=== PATIENT | female | born 1995 | race Two or more races ===

== ENCOUNTER 2022-07-06 17:39 | Emergency (ER) | payer MEDICAID ==
[~2022-07-06] VITALS: Ht 149.9 cm; Wt 58.7 kg
[2022-07-06] MEDS ORDERED: HYDROcodone-ACET 5/325MG TAB PO ONE (18:15)
[2022-07-06] MEDS ORDERED: ONDANSETRON ODT 4 MG TAB PO ONE (18:15)
[2022-07-06] MEDS ORDERED: IBUP100S11 PO ×2 (19:23→19:37)
[2022-07-06] MEDS ORDERED: HYDROcodone-ACET 10/325MG TAB PO ONE (19:45)
[2022-07-06 19:47] LABS: Basophils # (auto) 0 10 ^3/uL (0-0.2); Basophils % (auto) 0.3 % (0.0-2.0); Eosinophils # (auto) 0.1 10 ^3/uL (0-0.8); Eosinophils % (auto) 0.7 % (0.0-7.0); Hematocrit 40.5 % (36.0-46.0); Hemoglobin 13.2 g/dL (12.2-16.2); Lymphocytes % (auto) 15.1 % (10.0-50.0); Mean Corpuscular Hemoglobin 27.6 pg (28.0-32.0); Mean Corpuscular Hgb Conc. 32.5 g/dL (32.0-36.0); Mean Corpuscular Volume 84.8 fL (80.0-100.0); Monocytes # (auto) 0.6 10 ^3/uL (0-1.3); Monocytes % (auto) 4.8 % (0.0-12.0); Neutrophils # (auto) 10.6 10 ^3/uL (1.6-8.6); Neutrophils % (auto) 79.1 % (37.0-80.0); Nucleated Red Blood Cells % 0.1 %; Red Blood Cells 4.77 10^6/uL (4.0-5.20); Red Cell Distribution Width 13.2 % (11.8-14.3); White Blood Cell 13.4 10^3/uL (4.4-10.8)
[2022-07-06 20:29] LABS: Alanine Aminotransferase 71 U/L (13-56); Alkaline Phosphatase 92 U/L (45-117); Anion Gap 6 (5-15); Aspartate Aminotransferase 118 U/L (15-37); BUN/Creatinine Ratio 21.2; Blood Urea Nitrogen 11 mg/dL (7-18); Carbon Dioxide 29 mmol/L (21-32); Chloride 106 mmol/L (98-107); GFR African American 179 mL/min; GFR Non-African American 148 mL/min; Glucose 107 mg/dL (74-106); Potassium 4.3 mmol/L (3.5-5.1); Sodium 141 mmol/L (136-145)
[2022-07-06 20:30] LABS: Bilirubin, Total 0.8 mg/dL (0.2-1.0); Total Protein 7.3 g/dL (6.4-8.2)
[2022-07-06 20:55] VITALS: BP 110/70
== END 2022-07-06 21:03 | disposition home or self-care (01) ==
LOC: ER 17:39
DX: K80.20 Calculus of gallbladder without cholecystitis without obstruction (principal); Z79.1 Long term (current) use of non-steroidal anti-inflammatories (NSAID)
CPT/HCPCS: 36415; 76705; 80053; 85025; 93005; 99285; Q0162

== ENCOUNTER 2023-03-04 19:05 | Emergency (ER) | payer MEDICAID ==
[~2023-03-04] VITALS: Ht 149.9 cm; Wt 64.0 kg
[2023-03-04 19:05] VITALS: BP 146/72
[~2023-03-04 19:05] MED LIST: IBUP100S11 PO
[2023-03-04 20:18] LABS: Basophils # (auto) 0.1 10 ^3/uL (0-0.2); Basophils % (auto) 0.4 % (0.0-2.0); Eosinophils # (auto) 0.3 10 ^3/uL (0-0.8); Eosinophils % (auto) 2.3 % (0.0-7.0); Hematocrit 39.1 % (36.0-46.0); Hemoglobin 13.6 g/dL (12.2-16.2); Lymphocytes # (auto) 3.1 10 ^3/uL (0.4-5.4); Lymphocytes % (auto) 26.3 % (10.0-50.0); Mean Corpuscular Hemoglobin 29.6 pg (28.0-32.0); Mean Corpuscular Hgb Conc. 34.8 g/dL (32.0-36.0); Mean Corpuscular Volume 84.9 fL (80.0-100.0); Monocytes # (auto) 0.8 10 ^3/uL (0-1.3); Monocytes % (auto) 6.8 % (0.0-12.0); Neutrophils # (auto) 7.6 10 ^3/uL (1.6-8.6); Neutrophils % (auto) 64.2 % (37.0-80.0); Nucleated Red Blood Cells % 0.1 %; Red Cell Distribution Width 13.7 % (11.8-14.3); White Blood Cell 11.9 10^3/uL (4.4-10.8)
[2023-03-04 20:42] LABS: Calcium 8.8 mg/dL (8.5-10.1)
[2023-03-04 20:45] LABS: Urine Bacteria NONE SEEN /hpf (None Seen); Urine Blood Negative /uL (Negative); Urine Specific Gravity 1.014 (1.001-1.035); Urine WBC 3 /hpf (0 - 5)
[2023-03-04 20:46] LABS: Bilirubin, Total 0.7 mg/dL (0.2-1.0); Total Protein 7.7 g/dL (6.4-8.2)
== END 2023-03-05 03:36 | disposition home or self-care (01) ==
LOC: ER 19:05
DX: O20.0 Threatened abortion (principal); Z3A.08 8 weeks gestation of pregnancy
CPT/HCPCS: 36415; 76801; 76817; 80053; 81001; 84702; 85025

== ENCOUNTER 2024-04-26 15:12 | Emergency (ER) | payer MEDICAID ==
[~2024-04-26] VITALS: Ht 149.9 cm; Wt 63.4 kg
[2024-04-26 15:35] LABS: Urine Bacteria None Seen /hpf (None Seen)
[2024-04-26 15:43] LABS: Basophils # (auto) 0 10 ^3/uL (0-0.2); Basophils % (auto) 0.5 % (0.0-2.0); Eosinophils # (auto) 0.2 10 ^3/uL (0-0.8); Eosinophils % (auto) 2.3 % (0.0-7.0); Hematocrit 38.1 % (36.0-46.0); Hemoglobin 13.3 g/dL (12.2-16.2); Lymphocytes # (auto) 3.5 10 ^3/uL (0.4-5.4); Lymphocytes % (auto) 39.5 % (10.0-50.0); Mean Corpuscular Hemoglobin 29.9 pg (28.0-32.0); Mean Corpuscular Volume 85.4 fL (80.0-100.0); Monocytes # (auto) 0.5 10 ^3/uL (0-1.3); Monocytes % (auto) 6.2 % (0.0-12.0); Neutrophils # (auto) 4.5 10 ^3/uL (1.6-8.6); Neutrophils % (auto) 51.5 % (37.0-80.0); Red Blood Cells 4.47 10^6/uL (4.0-5.20); White Blood Cell 8.8 10^3/uL (4.4-10.8)
[2024-04-26] MEDS: KETOROLAC TROMETH 60MG/2ML VIAL IM ONE (15:55)
[2024-04-26 16:08] LABS: Alanine Aminotransferase 15 U/L (7-40); Albumin 4.8 g/dL (3.2-4.8); Alkaline Phosphatase 93 U/L (46-116); Anion Gap 3 (5-15); Aspartate Aminotransferase 12 U/L (13-40); BUN/Creatinine Ratio 18.8 (10.0-20.0); Blood Urea Nitrogen 12 mg/dL (9-23); Calcium 10.1 mg/dL (8.7-10.4); Carbon Dioxide 28 mmol/L (20-30); Chloride 107 mmol/L (98-107); Glucose 90 mg/dL (74-106); Potassium 4.7 mmol/L (3.5-5.1); Sodium 138 mmol/L (136-145)
[2024-04-26 16:09] LABS: Bilirubin, Total 0.9 mg/dL (0.2-1.0); Total Protein 7.4 g/dL (5.7-8.2)
[2024-04-26 16:24] LABS: Lipase 37 U/L (12-53)
[2024-04-26 16:27] LABS: Urine Blood 1+ /uL (Negative); Urine Clarity Clear (Clear); Urine Color Colorless (Yellow); Urine Protein, UAD Negative (Negative); Urine Specific Gravity 1.009 (1.001-1.035); Urine Urobilinogen Normal (Negative); Urine WBC 4 /hpf (0 - 5)
[2024-04-26] MEDS ORDERED: HYDR-4902 PO (17:30)
[2024-04-26] MEDS ORDERED: ZOFR4T PO (17:30)
[2024-04-26] MEDS: HYDROcodone-ACET 5/325MG TAB PO ONE (17:42)
[2024-04-26] MEDS ORDERED: CIPR-173 PO (18:19)
[2024-04-26 18:52] VITALS: BP 129/87; PULSE 72; RESP 18; TEMP 98.2; O2SAT 98
== END 2024-04-26 18:54 | disposition home or self-care (01) ==
LOC: ER 15:12
DX: K80.20 Calculus of gallbladder without cholecystitis without obstruction (principal); N39.0 Urinary tract infection, site not specified; R10.9 Unspecified abdominal pain; Z79.899 Other long term (current) drug therapy
CPT/HCPCS: 36415; 74176; 80053; 81001; 81025; 83690; 85025; 99284; J1885

== ENCOUNTER 2024-08-30 09:19 | Emergency (ER) | payer MEDICAID ==
[~2024-08-30] VITALS: Ht 149.9 cm; Wt 62.0 kg
[~2024-08-30 09:19] MED LIST changes: +CIPR-173 PO; +HYDR-4902 PO; +ZOFR4T PO
[2024-08-30 10:15] VITALS: BP 119/81; PULSE 85; RESP 16; TEMP 98.4; O2SAT 98
[2024-08-30] MEDS ORDERED: CEPH500C PO (11:01)
[2024-08-30] MEDS ORDERED: IBUP-1455 PO (11:01)
--- NOTE | 2024-08-30 11:02 | ED.PDOC ---
History of Present Illness HPI Comments 29-year-old female complaining of right breast pain intermittently for the last two months. States over the last week pain has been getting worse. States she feels tenderness with lying flat. Patient does report a history of breast reduction done in October of 2023. States she had no significant pain or c omplications after surgery until the last two months ago. Nothing makes it better, touching the area makes it worse. She was noticed some intermittent fevers over the last 3-4 days. Chief Complaint: Breast pain Time Seen by MD: 10:13 Primary Care Provider: unknown Reviewed Notes: Nurses Notes Allergies: Coded Allergies: NO KNOWN ALLERGIES (Unverified , 06/19/11) Home Meds Active Scripts Ciprofloxacin Hcl (Cipro) 500 Mg Tab, 1 TAB PO BID, #14 TAB Prov:YOSI PANIAGUA MD 04/26/24 Ondansetron Odt 4MG Tab (ZOFRAN PO) 4 Mg Tb, 4 MG PO Q8HP PRN for 5 Days, #15 TAB ODT TAB-DISSOLVE IN MOUTH, THEN SWALLOW Prov:YOSI PANIAGUA MD 04/26/24 Hydrocodone-Acetaminophen (Hydrocodone Bitartrate/AC 5-325 mg) 1 Tab Tab, 1 TAB PO Q8HP PRN for 5 Days, #15 TAB Prov:YOSI PANIAGUA MD 04/26/24 Ibuprofen (Motrin) 100 Mg/5 Ml Ud, 800 MG PO 3XD for 7 Days, #21 UNIT Prov:RUPAL LANDA MD 07/06/22 Information Source: Patient Mode of Arrival: Ambulatory Past Medical History PAST MEDICAL HISTORY: Gallstones Surgical History: Denies all surgeries WATER POLLUTION SPECIALIST History: Denies all WATER POLLUTION SPECIALIST Hx Family History Family History: Reviewed,noncontributory to illness Social History Smoker: Non-Smoker Alcohol: Occasionally Drugs: Denies Drug Use Lives In: Home Constitutional: reports: fever; denies: chills, diaphoresis, fatigue, malaise, sweats, weakness, others EENTM: denies: blurred vision, double vision, ear bleeding, ear discharge, ear drainage, ear pain, ear ringing, eye pain, eye redness, hearing loss, mouth pain, mouth swelling, nasal discharge, nose bleeding, nose congestion, nose pain, photophobia, tearing, throat pain, throat swelling, voice changes, others Respiratory: denies: cough, hemoptysis, orthopnea, SOB at rest, shortness of breath, SOB with excertion, stridor, wheezing, others Cardiovascular: denies: chest pain, dizzy spells, diaphoresis, Dyspnea on exertion, edema, irregular heart beat, left arm pain, lightheadedness, palpitations, PND, syncope, others Gastrointestinal: denies: abdomen distended, abdominal pain, blood streaked bowels, constipated, diarrhea, dysphagia, difficulty swallowing, hematemesis, melena, nausea, poor appetite, poor fluid intake, rectal bleeding, rectal pain, vomiting, others Genitourinary: denies: abnormal vagina bleeding, burning, dyspareunia, dysuria, flank pain, frequency, hematuria, incontinence, pain, , vagina discharge, urgency, others Neurological: denies: dizziness, fainting, headache, left sided numbness, left sided weakness, numbness, paresthesia, pre-existing deficit, right sided numbness, right sided weakness, seizure, speech problems, tingling, tremors, weakness, others Musculoskeletal: denies: back pain, gout, joint pain, joint swelling, muscle pain, muscle stiffness, neck pain, others Integumetry: denies: bruises, change in color, change in hair/nails, dryness, laceration, lesions, lumps, rash, wounds, others Allergic/Immunocompromised: denies: Difficulty Healing, Frequent Infections, Hives, Itching, others Hematologic/Lymphatic: denies: anemia, blood clots, easy bleeding, easy bruising, swollen glands, others Endocrine: denies: excessive hunger, excessive sweating, excessive thirst, excessive urination, flushing, intolerance to cold, intolerance to heat, unexplained weight gain, unexplained weight loss, others Psychiatric: denies: anxiety, bipolar disorder, depression, hopeless, panic disorder, schizophrenia, sleepless, suicidal, others Physical Exam General Appearance: No Apparent Distress, Normal HEENT: Normal ENT Inspection, Pharynx Normal, TMs Normal Neck: Full Range of Motion, Non-Tender, Normal, Normal Inspection Respiratory: Chest Non-Tender, Lungs Clear, No Accessory Muscle Use, No Respiratory Distress, Normal Breath Sounds Cardiovascular: No Edema, No JVD, No Murmur, No Gallop, Normal Peripheral Pulses, Regular Rate/Rhythm Breast Exam: (R) Tenderness (Tender to palpation over the lateral side of the right breast) Gastrointestinal: No Organomegaly, Non Tender, No Pulsatile Mass, Normal Bowel Sounds, Soft Genitalia: Deferred Pelvic: Deferred Rectal: Deferred Extremities: No calf tenderness, Normal capillary refill, Normal inspection, Normal range of motion, Non-tender, No pedal edema Musculoskeletal : Apperance: Normal Neurologic: Alert, epic trainer II-XII nml as Tested, No Motor Deficits, Normal Affect, Normal Mood, No Sensory Deficits Cerebellar Function: Normal Reflexes: Normal Skin: Dry, Normal Color, Warm Lymphatic: No Adenopathy Was a procedure done? Was a procedure done?: No Differential Dx Considerations may include: Mastitis, malignancy, cystic changes. X-Ray, Labs, Meds, VS Vital Signs Date Time Temp Pulse Resp B/P (MAP) Pulse Ox O2 Delivery O2 Flow Rate FiO2 08/30/24 10:15 85 16 98 Room Air 08/30/24 10:15 98.4 85 16 119/81 (94) 98 98.4 08/30/24 09:30 98.4 85 16 119/81 (94) 98 X-Ray, Labs, Meds, VS Comment Imaging: X-rays and CT scans were reviewed and interpreted by this provider, imaging shows no fractures and no pathological disease. Pending radiology review. Laboratory: Labs reviewed and interpreted by this provider. No significant abnormalities noted. Patient has prior medical visits reviewed. Med reconciliation performed Vital signs reviewed Advised to follow up with PCP for possible mammogram. Time of 1ST Reevaluation: 11:01 Reevaluation 1ST: Improved Patient Education/Counseling: Diagnosis, Treatment, Need For Follow Up (Patient advised to follow-up in the emergency room in the next 24 to 48 hours if symptoms do not improve. Advised follow-up with PCP in the next 3 to 5 days. Patient verbalized understanding. ) Family Education/Counseling: Diagnosis Departure 1 Departure Time of Disposition: 10:59 Impression: Primary Impression: Mastitis Disposition: 01 HOME / SELF CARE / HOMELESS Condition: Fair e-Prescriptions Ibuprofen Micronized (Ibuprofen) 800 Mg Tab 800 MG PO TID PRN, #30 TAB Prov: ALLEGRA HOWELL 08/30/24 Cephalexin Monohydrate (Cephalexin) 500 Mg Cap 1 CAP PO TID for 7 Days, #28 CAP Prov: ALLEGRA HOWELL 08/30/24 Discharged With: Self Critical Care Note Critical Care Time?: No Stability Stability form required: No Heart Score Heart Score: Heart Score Response (Comments) Value History N/A 0 EKG N/A 0 Age N/A 0 Risk Factors N/A 0 Troponin N/A 0 Total 0 ALLEGRA HOWELL Aug 30, 2024 11:02
== END 2024-08-30 11:02 | disposition home or self-care (01) ==
LOC: ER 09:19
DX: N61.0 Mastitis without abscess (principal); Z79.899 Other long term (current) drug therapy

== ENCOUNTER 2025-04-30 07:47 | Emergency (ER) | payer MEDICAID ==
[~2025-04-30] VITALS: Ht 149.9 cm; Wt 64.0 kg
[~2025-04-30 07:47] MED LIST changes: +CEPH500C PO; +IBUP-1455 PO
[2025-04-30 08:13] LABS: Urine Protein, UAD Negative (Negative)
--- NOTE | 2025-04-30 08:22 | ED.PDOC ---
General HPI Comments A 30 YEAR OLD FEMALE, WITH A PMHX OF OVARIAN FIBROIDS, PRESENTS TO THE ED WITH A C/C OF DYSURIA WITH ASSOCIATED LEFT PELVIC PAIN, NAUSEA, VOMITING, AND CONSTIPATION OF YESTERDAY. PATIENT STATES PELVIC PAIN RADIATES FROM THE LEFT PELVIS TO SUPRAPUBIC AREA. PATIENT STATES HER LAST MENSTRUAL PERIOD OF WAS 1 MONTH AGO AND SHE ONLY BLED FOR 1 DAY. PATIENT DENIES THIS HAPPENING BEFORE, AND DENIES FURTHER ASSOCIATED SYMPTOMS OF FEVER, CHILLS, CHEST PAIN, DIZZINESS, OR GENERAL WEAKNESS. PATIENT HAS NO FURTHER COMPLAINTS. PATIENT IS ALERT, ORIENTED X 4, AND HAS STEADY GAIT. Chief Complaint: Pelvic Pain Time Seen by MD: 08:11 Primary Care Provider: unknown Reviewed notes: Nurses Notes, Medications, Allergies Allergies: Coded Allergies: NO KNOWN ALLERGIES (Unverified , 06/19/11) Home Meds Active Scripts Ibuprofen Micronized (Ibuprofen) 800 Mg Tab, 800 MG PO TID PRN, #30 TAB Prov:ALLEGRA HOWELL RIGHT OF WAY CUTTER 08/30/24 Cephalexin Monohydrate (Cephalexin) 500 Mg Cap, 1 CAP PO TID for 7 Days, #28 CAP Prov:ALLEGRA HOWELLP 08/30/24 Ciprofloxacin Hcl (Cipro) 500 Mg Tab, 1 TAB PO BID, #14 TAB Prov:YOSI PANIAGUA MD 04/26/24 Ondansetron Odt 4MG Tab (ZOFRAN PO) 4 Mg Tb, 4 MG PO Q8HP PRN for 5 Days, #15 TAB ODT TAB-DISSOLVE IN MOUTH, THEN SWALLOW Prov:YOSI PANIAGUA MD 04/26/24 Hydrocodone-Acetaminophen (Hydrocodone Bitartrate/AC 5-325 mg) 1 Tab Tab, 1 TAB PO Q8HP PRN for 5 Days, #15 TAB Prov:YOSI PANIAGUA MD 04/26/24 Ibuprofen (Motrin) 100 Mg/5 Ml Ud, 800 MG PO 3XD for 7 Days, #21 UNIT Prov:RUPAL LANDA MD 07/06/22 Information Source: Patient Mode of Arrival: Ambulatory Severity: Moderate Timing: Days Duration: Since onset, Days Onset: Spontaneous Symptoms: Dysuria History of: None Location: Suprapubic associated signs and symptoms: Abdominal Pain, Nausea, Vomiting, Dysuria, Other (BLOOD STREAKED STOOL, ABDOMINAL DISTENTION) Past Medical History PAST MEDICAL HISTORY: Gallstones Surgical History: Denies all surgeries 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: Denies all TECHNICIAN HELPER INSTRUMENT Hx Family History Family History: Reviewed,noncontributory to illness Social History Smoker: Non-Smoker Alcohol: Occasionally Drugs: Denies Drug Use Lives In: Home Constitutional: denies: chills, diaphoresis, fatigue, fever, malaise, sweats, weakness, others EENTM: denies: blurred vision, double vision, ear bleeding, ear discharge, ear drainage, ear pain, ear ringing, eye pain, eye redness, hearing loss, mouth pain, mouth swelling, nasal discharge, nose bleeding, nose congestion, nose pain, photophobia, tearing, throat pain, throat swelling, voice changes, others Respiratory: denies: cough, hemoptysis, orthopnea, SOB at rest, shortness of breath, SOB with excertion, stridor, wheezing, others Cardiovascular: denies: chest pain, dizzy spells, diaphoresis, Dyspnea on exertion, edema, irregular heart beat, left arm pain, lightheadedness, palpitations, PND, syncope, others Gastrointestinal: reports: constipated, nausea, vomiting, others (BLOOD STREAKED STOOL ); denies: abdomen distended, abdominal pain, blood streaked bowels, diarrhea, dysphagia, difficulty swallowing, hematemesis, melena, poor appetite, poor fluid intake, rectal bleeding, rectal pain Genitourinary: reports: dysuria, pain (LEFT PELVIC TO SUPRAPUBIC ); denies: abnormal vagina bleeding, burning, dyspareunia, flank pain, frequency, hematuria, incontinence, , vagina discharge, urgency, others Neurological: denies: dizziness, fainting, headache, left sided numbness, left sided weakness, numbness, paresthesia, pre-existing deficit, right sided numbness, right sided weakness, seizure, speech problems, tingling, tremors, wea kness, others Musculoskeletal: denies: back pain, gout, joint pain, joint swelling, muscle pain, muscle stiffness, neck pain, others Integumetry: denies: bruises, change in color, change in hair/nails, dryness, l aceration, lesions, lumps, rash, wounds, others Allergic/Immunocompromised: denies: Difficulty Healing, Frequent Infections, Hives, Itching, others Hematologic/Lymphatic: denies: anemia, blood clots, easy bleeding, easy bruising, swollen glands, others Endocrine: denies: excessive hunger, excessive sweating, excessive thirst, excessive urination, flushing, intolerance to cold, intolerance to heat, unexplained weight gain, unexplained weight loss, others Psychiatric: denies: anxiety, bipolar disorder, depression, hopeless, panic disorder, schizophrenia, sleepless, suicidal, others All Other Systems: Reviewed and Negative Physical Exam General Appearance: Mild Distress, Normal, Other (ANXIOUS ) HEENT: Normal ENT Inspection, PERRL/EOMI, Pharynx Normal, TMs Normal Neck: Full Range of Motion, Non-Tender, Normal, Normal Inspection Respiratory: Chest Non-Tender, Lungs Clear, No Accessory Muscle Use, No Respiratory Distress, Normal Breath Sounds Cardiovascular: No Edema, No JVD, No Murmur, No Gallop, Normal Peripheral Pulses, Regular Rate/Rhythm Breast Exam: Deferred Gastrointestinal: No Organomegaly, Non Tender, No Pulsatile Mass, Normal Bowel Sounds, Soft Genitalia: Deferred Pelvic: Normal External Exam, Tender Adnexa (TENDERNESS ON LEFT PELVIC, NO GUARDING AND REBOUND TENDERNESS. ) Rectal: Deferred Extremities: No calf tenderness, Normal capillary refill, Normal inspection, Normal range of motion, Non-tender, No pedal edema Musculoskeletal : Apperance: Normal Neurologic: Alert, title i teacher II-XII nml as Tested, No Motor Deficits, Normal Affect, Normal Mood, No Sensory Deficits Cerebellar Function: Normal Reflexes: Normal Skin: Dry, Normal Color, Warm Peripheral Pulses: 2+ carotid (R), 2+ carotid (L) Lymphatic: No Adenopathy Was a procedure done? Was a procedure done?: No Differential Diagnosis Kidney stone (Female): Ovarian torsion, Strain, Other (UTERINE FIBROIDS, OVARIAN CYST) Urinary Problem (Female): Urolithiasis, UTI, Vaginitis Other Differential Diagnosis X-Ray, Labs, Meds, VS Vital Signs Date Time Temp Pulse Resp B/P (MAP) Pulse Ox O2 Delivery O2 Flow Rate FiO2 04/30/25 07:48 97.8 87 18 124/82 96 97.8 Lab Test 04/30/25 09:25 04/30/25 08:05 Range/Units White Blood Count 11.1 H 4.4-10.8 10^3/uL Red Blood Count 4.82 4.0-5.20 10^6/uL Hemoglobin 14.1 12.2-16.2 g/dL Hematocrit 41.2 36.0-46.0 % Mean Corpuscular Volume 85.5 80.0-100.0 fL Mean Corpuscular Hemoglobin 29.3 28.0-32.0 pg Mean Corpuscular Hemoglobin Concent 34.3 32.0-36.0 g/dL Red Cell Distribution Width 13.4 11.8-14.3 % Platelet Count 363 140-450 10^3/uL Mean Platelet Volume 6.3 L 6.9-10.8 fL Neutrophils (%) (Auto) 68.5 37.0-80.0 % Lymphocytes (%) (Auto) 22.1 10.0-50.0 % Monocytes (%) (Auto) 7.5 0.0-12.0 % Eosinophils (%) (Auto) 1.3 0.0-7.0 % Basophils (%) (Auto) 0.6 0.0-2.0 % Neutrophils # (Auto) 7.6 1.6-8.6 10 ^3/uL Lymphocytes # (Auto) 2.4 0.4-5.4 10 ^3/uL Monocytes # (Auto) 0.8 0-1.3 10 ^3/uL Eosinophils # (Auto) 0.1 0-0.8 10 ^3/uL Basophils # (Auto) 0.1 0-0.2 10 ^3/uL Nucleated Red Blood Cells 0.1 % Sodium Level 139 136-145 mmol/L Potassium Level 4.5 3.5-5.1 mmol/L Chloride Level 107 98-107 mmol/L Carbon Dioxide Level 25 20-31 mmol/L Anion Gap 7 5-15 Blood Urea Nitrogen 7 L 9-23 mg/dL Creatinine 0.69 0.550-1.02 mg/dL Glomerular Filtration Rate Calc 118 >90 mL/min BUN/Creatinine Ratio 10.1 10.0-20.0 Serum Glucose 100 74-106 mg/dL Calcium Level 9.9 8.7-10.4 mg/dL Urine Color Light-yellow Yellow Urine Clarity Clear Clear Urine pH 5.5 5.0-9.0 Urine Specific [place] 1.015 1.001-1.035 Urine Protein Negative Negative Urine Ketones Negative Negative Urine Blood Negative Negative /uL Urine Nitrite Negative Negative Urine Bilirubin Negative Negative Urine Urobilinogen Normal Negative mg/dL Urine Leukocyte Esterase Negative Negative /uL Urine RBC None seen 0 - 4 /hpf Urine Microscopic WBC 2 0-5 /HPF Urine Squamous Epithelial Cells Few <5 /hpf Urine Bacteria Few H None Seen /hpf Urine Glucose Normal Normal mg/dL Urine Test Negative Negative Current Medications Medications (Trade) Dose Ordered Sig/Pratik Route Start Time Stop Time Status Last Admin Ketorolac Tromethamine (Toradol Injection) 60 mg ONCE ONCE IM 04/30/25 08:45 04/30/25 08:46 DC 04/30/25 09:20 PATIENT: BÁRBARA DWYER MACCT: [id number]: [id number] : 1995 LOC: ER ROOM / BED: / AGE / SEX: 30 / F ADM STATUS: REG ER SERVICE 1 ORDERING PHYSICIAN: JODY LEA PROCEDURE(s): PELUS - PELVIC REASON: LEFT PELVIC PAIN TO SUPRAPUBIC ORDER NUMBER(s): [id number], ACCESSION NUMBER(s): [id number] INDICATION: LEFT PELVIC PAIN TO SUPRAPUBIC TECHNIQUE: Multiple real-time grayscale transabdominal and transvaginal sonographic images along with color and duplex Doppler of the uterus and ovaries were obtained. COMPARISON: None FINDINGS: The uterus measures 7.5 x 5.3 x 5.1 cm. The endometrial stripe measu res 1.0 cm. Exophytic fundal fibroid measures 3.3 cm. Right ovary measures 3.4 x 2.7 x 3.9 cm with normal Doppler color flow. Probable right ovarian hemorrhagic cyst measures 1.8 cm. Left ovary measures 2.2 x 1.6 x 2.0 cm with normal Doppler color flow. Left ovarian cyst measures 0.9 cm. IMPRESSION: Exophytic fundal fibroid measures 3.3 cm. Probable right ovarian hemorrhagic cyst measures 1.8 cm. Recommend repeat ultrasound in 6 weeks. ATED BY: JOSE ESTES MD DICTATED DATE/TIME: 04/30/25922 SIGNED BY: JOSE ESTES MD SIGNED DATE/TIME: 04/30/25922 CC: X-Ray, Labs, Meds, VS Comment EXTERNAL MEDICAL RECORDS REVIEWED: [NONE] INDEPENDENT HISTORIANS: [NONE] SOCIAL DETERMINANTS OF HEALTH: [NONE] LABS ORDERED: CBC, BMP, URINALYSIS, PREG. TEST REVIEWED AND INTERPRETED RESULTS: NONE IMAGING ORDERED: NONE TREATMENTS ORDERED: TORADOL 60MG IM PROCEDURES PERFORMED: NONE CRITICAL CARE TIME: NONE I HAVE DISCUSSED THE PATIENT WITH THE ATTENDING PHYSICIAN DR. ANDRADE AND SHE AGREES WITH THE PATIENT'S PLAN OF CARE AND DISPOSITION. BASED ON HISTORY OF PRESENT ILLNESS, AND PHYSICAL EXAM, PATIENT WILL BE DISCHARGED HOME. DISCUSSED PLAN FOR DISCHARGE HOME WITH RX [MOTRIN 800MG ]. MEDICATION WARNINGS GIVEN. SHARED DECISION MAKING: DISCUSSED WITH PATIENT THAT THEIR WORKUP WAS NORMAL. PATIENT INSTRUCTED TO FOLLOW UP WITH PRIMARY CARE PROVIDER IN 1-2 DAYS FOR RE- EVALUATION OF SYMPTOMS. PATIENT VERBALIZES UNDERSTANDING TO RETURN TO ED FOR NEW OR WORSENING SYMPTOMS OR IF FOLLOW UP WITH PCP CANNOT BE OBTAINED. PATIENT FEELS COMFORTABLE GOING HOME AT THIS TIME. ALL QUESTIONS ADDRESSED AT TIME OF DISCHARGE. Time of 1ST Reevaluation: 10:19 Reevaluation 1ST: Improved Patient Education/Counseling: Diagnosis, Treatment, Need For Follow Up Family Education/Counseling: Diagnosis, Treatment, Need For Follow Up Medical Screening: No EMC Exist At This Time SEPSIS Sepsis Screen Date sepsis recognized/suspect: Apr 30, 2025 Time Sepsis recognized/suspect: 749 Recent Procedure: No On Antibiotic Therapy: No Respiratory Rate >20: No Heart Rate >90: No Temp<36 C (96.8 F) or >38.3 C: No SBP <90 or MAP <65 mmHG: No New Acute Mental Status Change: No Is the patient on CPAP, BIPAP,: No Physician Orders Pelvic (04/30/25 08:22) Transvaginal Us Non Ob (04/30/25 08:54) Vital Signs Date Time Temp Pulse Resp B/P (MAP) Pulse Ox O2 Delivery O2 Flow Rate FiO2 04/30/25 07:48 97.8 87 18 124/82 96 97.8 Laboratory Tests Test 04/30/25 09:25 White Blood Count 11.1 10^3/uL (4.4-10.8) H Medications Medications Dose Ordered Sig/Pratik Route Start Time Stop Time Status Last Admin Dose Admin Ketorolac Tromethamine 60 mg ONCE ONCE IM 04/30/25 08:45 04/30/25 08:46 DC 04/30/25 09:20 Departure 1 Departure Time of Disposition: 10:20 Impression: Primary Impression: Uterine fibroid Qualified Codes: D25.9 - Leiomyoma of uterus, unspecified Additional Impression: Hemorrhagic cyst of right ovary Disposition: HOME / SELF CARE / HOMELESS Condition: Stable Additional Instructions: FOLLOW-UP WITH PCP IN 1 TO 2 DAYS. TAKE MEDICATIONS PRESCRIBED. RETURN TO ED FOR ANY NEW OR WORSENING SYMPTOMS e-Prescriptions Ibuprofen (Ibuprofen) 800 Mg Tab 1 TAB PO TID, #30 TAB Prov: JODY LEA 04/30/25 Discharged With: Self Critical Care Note Critical Care Time?: No Stability Stability form required: No Heart Score Heart Score: Heart Score Response (Comments) Value History N/A 0 EKG N/A 0 Age N/A 0 Risk Factors N/A 0 Troponin N/A 0 Total 0 I personally scribed for JODY LEA ([email or web address]) on 04/30/25 at 08:22. Electronically submitted by Maryam Pinto ([email or web address]). JODY LEA Apr 30, 2025 08:22
[2025-04-30] MEDS: KETOROLAC TROMETH 60MG/2ML VIAL IM ONE (09:20)
--- NOTE | 2025-04-30 09:26 | DVH ---
INDICATION: LEFT PELVIC PAIN TO SUPRAPUBIC TECHNIQUE: Multiple real-time grayscale transabdominal and transvaginal sonographic images along with color and duplex Doppler of the uterus and ovaries were obtained. COMPARISON: None FINDINGS: The uterus measures 7.5 x 5.3 x 5.1 cm. The endometrial stripe measures 1.0 cm. Exophytic f undal fibroid measures 3.3 cm. Right ovary measures 3.4 x 2.7 x 3.9 cm with normal Doppler color flow. Probable right ovarian hemor rhagic cyst measures 1.8 cm. Left ovary measures 2.2 x 1.6 x 2.0 cm with normal Doppler color flow. Left ovarian cyst measures 0. 9 cm. IMPRESSION: Exophytic fundal fibroid measures 3.3 cm. Probable right ovarian hemorrhagic cyst measures 1.8 cm. Recommend repeat ultrasound in 6 weeks.
[2025-04-30 09:37] LABS: Hematocrit 41.2 % (36.0-46.0); Hemoglobin 14.1 g/dL (12.2-16.2); Mean Corpuscular Hemoglobin 29.3 pg (28.0-32.0); Mean Corpuscular Volume 85.5 fL (80.0-100.0); Nucleated Red Blood Cells % 0.1 %
[2025-04-30 09:45] LABS: Chloride 107 mmol/L (98-107); Potassium 4.5 mmol/L (3.5-5.1); Sodium 139 mmol/L (136-145)
[2025-04-30 09:46] LABS: Anion Gap 7 (5-15); Calcium 9.9 mg/dL (8.7-10.4); Carbon Dioxide 25 mmol/L (20-31)
[2025-04-30 09:51] LABS: BUN/Creatinine Ratio 10.1 (10.0-20.0); Glucose 100 mg/dL (74-106)
[2025-04-30 09:55] LABS: Blood Urea Nitrogen 7 mg/dL (9-23)
[2025-04-30] MEDS ORDERED: IBUP-1456 PO (10:21)
[2025-04-30 10:22] VITALS: BP 116/62; PULSE 67; RESP 18; TEMP 98; O2SAT 97
== END 2025-04-30 10:23 | disposition home or self-care (01) ==
LOC: ER 07:47
DX: D25.9 Leiomyoma of uterus, unspecified (principal); N83.201 Unspecified ovarian cyst, right side; F10.90 Alcohol use, unspecified, uncomplicated; Z79.899 Other long term (current) drug therapy; Y90.9 Presence of alcohol in blood, level not specified
CPT/HCPCS: 36415; 76830; 76856; 80048; 81001; 81025; 85025; 96372; 99285; J1885

== ENCOUNTER 2025-06-28 11:55 | Emergency (ER) | payer MEDICAID ==
[~2025-06-28] VITALS: Ht 149.9 cm; Wt 64.1 kg
[~2025-06-28 11:55] MED LIST changes: +IBUP-1456 PO
--- NOTE | 2025-06-28 12:39 | ED.PDOC ---
GI ASSESSMENT HPI Comments 30 y/o F, with PMHx of cholelithiasis and ovarian cyst presents to the ED for CC of abdominal pain. Patient states, she has been experiencing LLQ abdominal pain hat radiates to her back with associated nausea and vomiting x1day. Patient relays, further associated symptoms of burning with urination. Patient denies frequency, excessive thirst, fever, diarrhea, hematemesis, melena, vaginal discharge, or abdominal cramping. No other symptoms or modifying factors are present at this time. Chief Complaint: Abdominal Pain Time Seen by MD: 12:20 Primary Care Provider: unknown Reviewed Notes: Nurses Notes, Medications, Allergies Allergies: Coded Allergies: NO KNOWN ALLERGIES (Unverified , 06/19/11) Home Meds Active Scripts Ibuprofen (Ibuprofen) 800 Mg Tab, 1 TAB PO TID, #30 TAB Prov:JODY LEA 04/30/25 Ibuprofen Micronized (Ibuprofen) 800 Mg Tab, 800 MG PO TID PRN, #30 TAB Prov:ALLEGRA HOWELL 08/30/24 Cephalexin Monohydrate (Cephalexin) 500 Mg Cap, 1 CAP PO TID for 7 Days, #28 CAP Prov:ALLEGRA HOWELL 08/30/24 Ciprofloxacin Hcl (Cipro) 500 Mg Tab, 1 TAB PO BID, #14 TAB Prov:YOSI PANIAGUA MD 04/26/24 Ondansetron Odt 4MG Tab (ZOFRAN PO) 4 Mg Tb, 4 MG PO Q8HP PRN for 5 Days, #15 TAB ODT TAB-DISSOLVE IN MOUTH, THEN SWALLOW Prov:YOSI PANIAGUA MD 04/26/24 Hydrocodone-Acetaminophen (Hydrocodone Bitartrate/AC 5-325 mg) 1 Tab Tab, 1 TAB PO Q8HP PRN for 5 Days, #15 TAB Prov:YOSI PANIAGUA MD 04/26/24 Ibuprofen (Motrin) 100 Mg/5 Ml Ud, 800 MG PO 3XD for 7 Days, #21 UNIT Prov:RUPAL LANDA MD 07/06/22 Information Source: Patient Mode of Arrival: Ambulatory Timing: Days Duration: Since onset Prehospital treatment: None Quality: None Vomitus: Watery Stool: Normal Severity: Moderate Recent: None Recent Hx of: None Pain Location: LLQ Modifying Factors: Nothing Associated sign and symptoms: Nausea, Vomiting, Abdominal Pain Past Medical History PAST MEDICAL HISTORY: Anemia, Gallstones Surgical History: Denies all surgeries [employer] History: Ovarian Cysts Family History Family History: Family hx of DM, Family hx of Cancer Social History Smoker: Non-Smoker Alcohol: Occasionally Drugs: Denies Drug Use Lives In: Home Constitutional: denies: chills, diaphoresis, fatigue, fever, malaise, sweats, weakness, others EENTM: denies: blurred vision, double vision, ear bleeding, ear discharge, ear drainage, ear pain, ear ringing, eye pain, eye redness, hearing loss, mouth pain, mouth swelling, nasal discharge, nose bleeding, nose congestion, nose pain, photophobia, tearing, throat pain, throat swelling, voice changes, others Respiratory: denies: cough, hemoptysis, orthopnea, SOB at rest, shortness of breath, SOB with excertion, stridor, wheezing, others Cardiovascular: denies: chest pain, dizzy spells, diaphoresis, Dyspnea on exertion, edema, irregular heart beat, left arm pain, lightheadedness, palpitations, PND, syncope, others Gastrointestinal: reports: abdominal pain, vomiting; denies: abdomen distended, blood streaked bowels, constipated, diarrhea, dysphagia, difficulty swallowing, hematemesis, melena, nausea, poor appetite, poor fluid intake, rectal bleeding, rectal pain, others Genitourinary: reports: dysuria; denies: abnormal vagina bleeding, burning, dyspareunia, flank pain, frequency, hematuria, incontinence, pain, , vagina discharge, urgency, others Neurological: denies: dizziness, fainting, headache, left sided numbness, left sided weakness, numbness, paresthesia, pre-existing deficit, right sided numbness, right sided weakness, seizure, speech problems, tingling, tremors, weakness, others Musculoskeletal: denies: back pain, gout, joint pain, joint swelling, muscle pain, muscle stiffness, neck pain, others Integumetry: denies: bruises, change in color, change in hair/nails, dryness, laceration, lesions, lumps, rash, wounds, others Allergic/Immunocompromised: denies: Difficulty Healing, Frequent Infections, Hives, Itching, others Hematologic/Lymphatic: denies: anemia, blood clots, easy bleeding, easy bruising, swollen glands, others Endocrine: denies: excessive hunger, excessive sweating, excessive thirst, excessive urination, flushing, intolerance to cold, intolerance to heat, unexplained weight gain, unexplained weight loss, others Psychiatric: denies: anxiety, bipolar disorder, depression, hopeless, panic disorder, schizophrenia, sleepless, suicidal, others All Other Systems: Reviewed and Negative Physical Exam General Appearance: Mild Distress HEENT: Normal ENT Inspection, Pharynx Normal, TMs Normal Neck: Full Range of Motion, Non-Tender, Normal, Normal Inspection Respiratory: Chest Non-Tender, Lungs Clear, No Accessory Muscle Use, No Respiratory Distress, Normal Breath Sounds Cardiovascular: No Edema, No JVD, No Murmur, No Gallop, Normal Peripheral Pulses, Regular Rate/Rhythm Breast Exam: Deferred Gastrointestinal: No Organomegaly, Non Tender, No Pulsatile Mass, Normal Bowel Sounds, Soft Genitalia: Deferred Pelvic: Deferred Rectal: Deferred Extremities: No calf tenderness, Normal capillary refill, Normal inspection, Normal range of motion, Non-tender, No pedal edema Musculoskeletal : Apperance: Normal Neurologic: Alert, landmen II-XII nml as Tested, No Motor Deficits, Normal Affect, Normal Mood, No Sensory Deficits Cerebellar Function: Normal Reflexes: Normal Skin: Dry, Normal Color, Warm Lymphatic: No Adenopathy Was a procedure done? Was a procedure done?: No GI differential Dx Differential Diagnosis: Cholecystitis, Ovarian cyst/torsion, Urinary Obstruction, UTI, Urolithiasis X-Ray, Labs, Meds, VS Vital Signs Date Time Temp Pulse Resp B/P (MAP) Pulse Ox O2 Delivery O2 Flow Rate FiO2 06/28/25 14:32 98.4 73 16 109/79 (89) 96 98.4 06/28/25 11:56 97.9 73 18 130/90 95 97.9 Lab Test 06/28/25 12:45 Range/Units White Blood Count 7.6 4.4-10.8 10^3/uL Red Blood Count 4.58 4.0-5.20 10^6/uL Hemoglobin 13.7 12.2-16.2 g/dL Hematocrit 39.2 36.0-46.0 % Mean Corpuscular Volume 85.6 80.0-100.0 fL Mean Corpuscular Hemoglobin 29.9 28.0-32.0 pg Mean Corpuscular Hemoglobin Concent 34.9 32.0-36.0 g/dL Red Cell Distribution Width 13.8 11.8-14.3 % Platelet Count 357 140-450 10^3/uL Mean Platelet Volume 6.4 L 6.9-10.8 fL Neutrophils (%) (Auto) 56.7 37.0-80.0 % Lymphocytes (%) (Auto) 30.9 10.0-50.0 % Monocytes (%) (Auto) 8.9 0.0-12.0 % Eosinophils (%) (Auto) 2.9 0.0-7.0 % Basophils (%) (Auto) 0.6 0.0-2.0 % Neutrophils # (Auto) 4.3 1.6-8.6 10 ^3/uL Lymphocytes # (Auto) 2.4 0.4-5.4 10 ^3/uL Monocytes # (Auto) 0.7 0-1.3 10 ^3/uL Eosinophils # (Auto) 0.2 0-0.8 10 ^3/uL Basophils # (Auto) 0 0-0.2 10 ^3/uL Nucleated Red Blood Cells 0.1 % Sodium Level 142 136-145 mmol/L Potassium Level 4.5 3.5-5.1 mmol/L Chloride Level 108 H 98-107 mmol/L Carbon Dioxide Level 27 20-31 mmol/L Anion Gap 7 5-15 Blood Urea Nitrogen 10 9-23 mg/dL Creatinine 0.70 0.550-1.02 mg/dL Glomerular Filtration Rate Calc 118 >90 mL/min BUN/Creatinine Ratio 14.3 10.0-20.0 Serum Glucose 98 74-106 mg/dL Calcium Level 9.5 8.7-10.4 mg/dL PELVIC US: IMPRESSION: 3.1 x 2.9 x 3.6 cm heterogeneous lesion in the right adnexa could be an exophytic fibroid, similar to prior. Consider outpatient pelvic MRI for further evaluation. The patient's CBC and chemistry panel are within normal limits. At this time, the patient will be discharged with a diagnosis of fibroid tumor The patient is discharged on [place] and Zofran for the vomiting Images Reviewed?: Images reviewed and evaluated by me Time of 1ST Reevaluation: 12:50 Reevaluation 1ST: Unchanged Patient Education/Counseling: Diagnosis, Treatment, Prognosis, Need For Follow Up Family Education/Counseling: No Family Present SEPSIS Sepsis Screen Date sepsis recognized/suspect: Jun 28, 2025 Time Sepsis recognized/suspect: 1156 Recent Procedure: No On Antibiotic Therapy: No Respiratory Rate >20: No Heart Rate >90: No Temp<36 C (96.8 F) or >38.3 C: No SBP <90 or MAP <65 mmHG: No New Acute Mental Status Change: No Is the patient on CPAP, BIPAP,: No Physician Orders Urinalysis (06/28/25 12:33) Pelvic (06/28/25 12:33) Test, Urine (06/28/25 12:33) Transvaginal Us Non Ob (06/28/25 ) Vital Signs Date Time Temp Pulse Resp B/P (MAP) Pulse Ox O2 Delivery O2 Flow Rate FiO2 06/28/25 14:32 98.4 73 16 109/79 (89) 96 98.4 06/28/25 11:56 97.9 73 18 130/90 95 97.9 Laboratory Tests Test 06/28/25 12:45 White Blood Count 7.6 10^3/uL (4.4-10.8) Departure 1 Departure Time of Disposition: 16:00 Impression: Primary Impression: Fibroid tumor Additional Impression: Vomiting Qualified Codes: R11.2 - Nausea with vomiting, unspecified Disposition: 01 HOME / SELF CARE / HOMELESS Condition: Fair Discharged With: Self Critical Care Note Critical Care Time?: No Stability Stability form required: No Heart Score Heart Score: Heart Score Response (Comments) Value History N/A 0 EKG N/A 0 Age N/A 0 Risk Factors N/A 0 Troponin N/A 0 Total 0 I personally scribed for YOSI PANIAGUA MD ([email or web address]) on 06/28/25 at 12:39. Electronically submitted by Juliane Pinzon ([email or web address]). I personally scribed for YOSI PANIAGUA MD ([email or web address]) on 06/28/25 at 12:44. Electronically submitted by Juliane Pinzon ([email or web address]). I personally scribed for YOSI PANIAGUA MD ([email or web address]) on 06/28/25 at 15:26. Electronically submitted by Juliane Pinzon ([email or web address]). YOSI PANIAGUA MD Jun 28, 2025 12:39
[2025-06-28 13:01] LABS: Hematocrit 39.2 % (36.0-46.0); Hemoglobin 13.7 g/dL (12.2-16.2); Mean Corpuscular Hemoglobin 29.9 pg (28.0-32.0); Mean Corpuscular Volume 85.6 fL (80.0-100.0); Nucleated Red Blood Cells % 0.1 %
[2025-06-28 13:11] LABS: Potassium 4.5 mmol/L (3.5-5.1); Sodium 142 mmol/L (136-145)
[2025-06-28 13:12] LABS: Anion Gap 7 (5-15); Calcium 9.5 mg/dL (8.7-10.4); Carbon Dioxide 27 mmol/L (20-31); Chloride 108 mmol/L (98-107)
[2025-06-28 13:17] LABS: BUN/Creatinine Ratio 14.3 (10.0-20.0); Blood Urea Nitrogen 10 mg/dL (9-23); Glucose 98 mg/dL (74-106)
[2025-06-28 14:32] VITALS: BP 109/79; PULSE 73; RESP 16; TEMP 98.4; O2SAT 96
--- NOTE | 2025-06-28 15:13 | DVH ---
US PELVIC HISTORY: pain COMPARISON: US PELVIC on DOS: 04/30/25, US OB TRANS VAGINAL US on DOS: 03/03/23 TECHNIQUE: Transabdominal and transvaginal images with color and spectral doppler were obtained of th e pelvis and ovaries. FINDINGS: Uterus: - Measures 9.1 x 5.4 x 4.3 cm in length. - Echogenicity: Normal - Endometrial stripe: 11 mm - Cervix: Normal. Right ovary: - Measures 4.1 x 2.9 x 2.6 cm - Vascularity: Normal flow on Doppler images. - Mass lesions: 2.1 x 2.1 x 2.2 cm cyst. Left ovary: - Measures 2.6 x 1.7 x 2.1 cm - Vascularity: Normal flow on Doppler images. - Mass lesions: None Free fluid: None Other: None IMPRESSION: 3.1 x 2.9 x 3.6 cm heterogeneous lesion in the right adnexa could be an exophytic fibroid, similar to prior. Consider outpatient pelvic MRI for further evaluation.
[2025-06-28 21:57] LABS: Urine Budding Yeast OCCASIONAL /hpf (None Seen); Urine Protein, UAD Negative (Negative)
== END 2025-06-28 17:08 | disposition home or self-care (01) ==
LOC: ER 11:55
DX: R10.32 Left lower quadrant pain (principal); R30.0 Dysuria; R11.10 Vomiting, unspecified
CPT/HCPCS: 36415; 76830; 76856; 80048; 81001; 81025; 85025